=== PATIENT | female | born 1965 | race Caucasian/White ===

== ENCOUNTER 2018-03-27 19:06 | Emergency (ER) | payer OTHER ==
[~2018-03-27] VITALS: Ht 165.1 cm; Wt 78.2 kg
[2018-03-27 19:13] VITALS: TEMP 36.6; Ht 165.1 cm; Wt 78.2 kg
[2018-03-27] MEDS ORDERED: KETOROLAC TROMETHAMINE 30 MG/ML VIAL IV STA (19:22)
[2018-03-27] MEDS ORDERED: SODIUM CHLORIDE 0.9% 1000ML 1,000 ML IV STA (19:22)
[2018-03-27] MEDS ORDERED: ONDANSETRON INJ 2 MG/ML 2 ML VIAL IV STA (19:22)
[2018-03-27] MEDS ORDERED: MoRPHine SULFATE 4 MG/ML 1 ML CARP\\VIAL IV PRN (19:30)
[2018-03-27] MEDS ORDERED: OPTIRAY 320 IV PRN (19:30)
[2018-03-27 19:54] LABS: BASO % 0.2 %; BASO ABS # 0.01 K/uL (0-0.2); EOS % 1.6 %; EOS ABS # 0.09 K/uL (0-0.5); HEMATOCRIT 37.1 % (37-47); IG# 0.01 K/uL (0.00-0.02); LYMPH % 30.2 %; LYMPH ABS # 1.72 K/uL (1.2-3.4); MEAN CELL VOLUME 88.1 fL (80-100); MEAN CORPUSCULAR HEMOGLOBIN 30.9 pg (25-34); MEAN PLATELET VOLUME 8.5 fL (7.4-10.4); MONO % 6.5 %; MONO ABS # 0.37 K/uL (0.11-0.59); NEUT % 61.3 %; NEUT ABS # 3.49 K/uL (1.4-6.5); PLATELET COUNT 200 K/uL (130-400); RED CELL DISTRIBUTION WIDTH CV 12.9 % (11.5-14.5); RED CELL DISTRIBUTION WIDTH SD 41.4 fL (36.4-46.3); WHITE BLOOD COUNT 5.69 K/uL (4.8-10.8)
[2018-03-27 20:15] LABS: ALBUMIN 4.1 gm/dl (3.4-5.0); CALCIUM 9.4 mg/dl (8.5-10.1); CREATININE 0.97 mg/dl (0.60-1.20); POTASSIUM 3.5 mmol/L (3.5-5.1); TOTAL PROTEIN 8.1 gm/dl (6.4-8.2)
[2018-03-27] MEDS ORDERED: DiphenhydrAMINE HCL 50 MG/ML VIAL IV STA (20:15)
[2018-03-27] MEDS ORDERED: PROM25TA9 PO (20:43)
[2018-03-27] MEDS ORDERED: KETO10TA PO (20:43)
[2018-03-27] MEDS ORDERED: BUPR-79 PO (20:43)
[2018-03-27] MEDS ORDERED: AMB5 PO (20:43)
[2018-03-27] MEDS ORDERED: AMIT10TA6 PO (20:43)
[2018-03-27] MEDS ORDERED: RIZA10TA18 PO (20:43)
[2018-03-27] MEDS ORDERED: ESTR0.07 TD (20:43)
[2018-03-27] MEDS ORDERED: LORA-741 PO (20:43)
[2018-03-27] MEDS ORDERED: URC10 PO (20:43)
--- NOTE | 2018-03-27 22:54 | EMERGENCY ROOM VISIT NOTE ---
History Report prepared by Roxana: Neftaly Gamboa Under the Supervision of: Dr. Octavio Aaron M.D. First contact with patient: 19:16 Chief Complaint: ABDOMINAL PAIN Stated Complaint: PAIN IN LT SIDE POSS DIVERTICULITIS History of Present Illness The patient is a 53 year old female who presents to the Emergency Room with complaints of worsening left lower quadrant abdominal pain beginning two weeks ago. She currently rates her discomfort a 7/10 in severity. The patient states her symptoms have gradually increased. She reports she went to [place] ED two days ago where she had a CT scan without oral or IV contrast. The patient notes she was diagnosed with diverticulitis and given Cipro, Flagyl, and Tramadol. She states she has a history of diverticulitis and her last episode was a year ago. The patient reports he has been constipated and urinating more frequently. She notes she developed severe nausea today. The patient states she has a history of a cholecystectomy and a hysterectomy. She denies pain with urination, diarrhea, fevers, vomiting, trauma or injuries to the abdomen, and pain radiating to her back. Source of History: patient Onset: two weeks ago Position: abdomen (LLQ) Symptom Intensity: 7/10 Timing: worsening (gradually) Associated Symptoms: + nausea, No fevers, No vomiting, No diarrhea Note: Associated symptoms: constipated, urinating more frequently Denies: pain radiating to her back, pain with urination, trauma or injury to the abdomen Review of Systems See HPI for pertinent positives & negatives. A total of 10 systems reviewed and were otherwise negative. Past Medical & Surgical Medical Problems: (1) Diverticulitis Surgical Problems: (1) H/O: hysterectomy (2) History of cholecystectomy Family History Patient reports no known family medical history. Social History Smoking Status: Never Smoker Marital Status: Occupation Status: employed Current/Historical Medications Scheduled Bupropion (Wellbutrin Sr), 150 MG PO DAILY Estradiol (Vivelle-Dot), 1 PATCH TD WK Potassium Citrate (Potassium Citrate), 10 MEQ PO DAILY Sennosides-Docusate Sodium (Senokot S), 2 TAB PO BID Zolpidem Tartrate (Zolpidem Tartrate), 5 MG PO HS Scheduled PRN Amitriptyline Hcl (Elavil), 10 MG PO DIRECTED PRN for Migraine Ketorolac (Toradol), 10 MG PO DIRECTED PRN for Migraine Lorazepam (Ativan), 0.5 MG PO DIRECTED PRN for Migraine Promethazine Hcl (Phenergan), 25 MG PO DIRECTED PRN for Migraine Rizatriptan Benzoate (Maxalt), 10 MG PO DIRECTED PRN for Migraine Allergies Coded Allergies: Morphine and Related (Verified Allergy, Severe, "TIGHTING IN CHEST", SOB, 03/27/18) Physical Exam Vital Signs Date Time Temp Pulse Resp B/P (MAP) Pulse Ox O2 Delivery O2 Flow Rate FiO2 03/28/18 00:14 66 16 139/62 95 03/27/18 22:30 68 18 124/69 97 Room Air 03/27/18 20:25 69 20 141/65 99 Room Air 03/27/18 19:13 36.6 69 20 127/59 99 Room Air Physical Exam GENERAL: Patient is in no acute distress. HEENT: No acute trauma, normocephalic atraumatic, mucous membranes moist, no nasal congestion, no scleral icterus. NECK: No stridor, no adenopathy, no meningismus, trachea is midline. LUNGS: Clear to auscultation bilaterally, no wheeze, no rhonchi, breath sounds equal. HEART: Without murmurs gallops or rubs, regular rate and rhythm. ABDOMEN: Soft, moderately tender in the LLQ and mildly in the RLQ, bowel sounds positive, no hernias, no peritonitis. EXTREMITIES: No cyanosis or edema, full range of motion of all the joints without pain or difficulty, no signs for acute trauma. NEUROLOGIC: Oriented x 3, no acute motor or sensory deficits, no focal weakness. SKIN: No rash, no jaundice, no diaphoresis. Medical Decision & Procedures ER Provider Diagnostic Interpretation: CT results as stated below per my review and radiologist interpretation: CT SCAN OF THE ABDOMEN AND PELVIS WITH IV CONTRAST CLINICAL HISTORY: Left-sided abdominal pain. COMPARISON STUDY: No priors. TECHNIQUE: Following the IV administration of 93 cc of Optiray 320, CT scan of the abdomen and pelvis is performed from the lung bases to the proximal femora. Images are reviewed in the axial, sagittal, and coronal planes. IV contrast was administered without complication. A dose lowering technique was utilized adhering to the principles of ALARA. CT DOSE: 784.77 mGycm FINDINGS: Lung bases: The heart is normal in size and without pericardial effusion. The lung bases are clear noting dependent atelectasis. Liver: The contrast-enhanced liver is enlarged, measuring 19.6 cm in length. The liver is otherwise normal in contour and attenuation. There is no intrahepatic biliary ductal dilatation. Fatty infiltration is noted adjacent to the falx or ligament. Mild periportal edema is likely related to hydration status. The hepatic veins and portal veins are patent. A 1.8 cm low-attenuation lesion is seen in the inferior right lobe of the liver on image #162. This does not meet criteria for a simple cyst, and small foci of peripheral discontinuous nodular enhancement are suggested. Gallbladder: Surgically absent noting clips in the gallbladder fossa. Spleen: Normal in size and attenuation. Pancreas: Unremarkable. Adrenal glands: Unremarkable. Kidneys: The contrast enhanced kidneys demonstrate mild cortical atrophy and are without hydronephrosis. The kidneys enhance symmetrically. Abdominal vasculature: The abdominal aorta is normal in course and caliber. Bowel: There is moderate colonic diverticulosis. There is wall thickening with pericolonic inflammation and fluid seen involving the mid descending colon consistent with acute diverticulitis. No organized fluid collection is seen to suggest abscess. No bowel obstruction is identified. The appendix is well-visualized and normal. Peritoneum: There is no intraperitoneal free air or abdominal ascites. Lymphadenopathy: None. Pelvic viscera: The bladder is normal as visualized. The uterus is surgically absent. No adnexal lesion is seen. Numerous surgical clips are scattered throughout the pelvis. Skeletal structures: No lytic or blastic lesions are seen. IMPRESSION: 1. There is moderate colonic diverticulosis with evidence of acute diverticulitis involving the mid descending colon. No intraperitoneal free air is seen and there is no evidence of abscess. 2. Hepatomegaly. 3. There is a 1.8 cm low-attenuation lesion in the right lobe of the liver. Although incompletely characterized, the enhancement pattern strongly suggests that this represents a benign hemangioma. Correlation with any prior outside imaging studies will be required. If no prior studies are available and further characterization is desired an MRI of the liver would be definitive. 4. Additional findings as above. Electronically signed by: Octavio Braswell M.D. 03/27/2018 11:09 PM Dictated Date/Time: 03/27/2018 11:03 PM Laboratory Results 03/27/18 19:40 Red Blood Count 4.21, Mean Corpuscular Volume 88.1, Mean Corpuscular Hemoglobin 30.9, Mean Corpuscular Hemoglobin Concent 35.0, Mean Platelet Volume 8.5, Neutrophils (%) (Auto) 61.3, Lymphocytes (%) (Auto) 30.2, Monocytes (%) (Auto) 6.5, Eosinophils (%) (Auto) 1.6, Basophils (%) (Auto) 0.2, Neutrophils # (Auto) 3.49, Lymphocytes # (Auto) 1.72, Monocytes # (Auto) 0.37, Eosinophils # (Auto) 0.09, Basophils # (Auto) 0.01 03/27/18 19:40 Test 03/27/18 19:40 White Blood Count 5.69 K/uL (4.8-10.8) Red Blood Count 4.21 M/uL (4.2-5.4) Hemoglobin 13.0 g/dL (12.0-16.0) Hematocrit 37.1 % (37-47) Mean Corpuscular Volume 88.1 fL (80-100) Mean Corpuscular Hemoglobin 30.9 pg (25-34) Mean Corpuscular Hemoglobin Concent 35.0 g/dl (32-36) Platelet Count 200 K/uL (130-400) Mean Platelet Volume 8.5 fL (7.4-10.4) Neutrophils (%) (Auto) 61.3 % Lymphocytes (%) (Auto) 30.2 % Monocytes (%) (Auto) 6.5 % Eosinophils (%) (Auto) 1.6 % Basophils (%) (Auto) 0.2 % Neutrophils # (Auto) 3.49 K/uL (1.4-6.5) Lymphocytes # (Auto) 1.72 K/uL (1.2-3.4) Monocytes # (Auto) 0.37 K/uL (0.11-0.59) Eosinophils # (Auto) 0.09 K/uL (0-0.5) Basophils # (Auto) 0.01 K/uL (0-0.2) RDW Standard Deviation 41.4 fL (36.4-46.3) RDW Coefficient of Variation 12.9 % (11.5-14.5) Immature Granulocyte % (Auto) 0.2 % Immature Granulocyte # (Auto) 0.01 K/uL (0.00-0.02) Urine Color YELLOW Urine Appearance CLEAR (CLEAR) Urine pH 5.0 (4.5-7.5) Urine Specific [place] 1.016 (1.000-1.030) Urine Protein NEG (NEG) Urine Glucose (UA) NEG (NEG) Urine Ketones TRACE (NEG) Urine Occult Blood TRACE (NEG) Urine Nitrite NEG (NEG) Urine Bilirubin NEG (NEG) Urine Urobilinogen NEG (NEG) Urine Leukocyte Esterase SMALL (NEG) Urine WBC (Auto) 1-5 /hpf (0-5) Urine RBC (Auto) 0-4 /hpf (0-4) Urine Hyaline Casts (Auto) 0 /lpf (0-5) Urine Epithelial Cells (Auto) 10-20 /lpf (0-5) Urine Bacteria (Auto) NEG (NEG) Anion Gap 6.0 mmol/L (3-11) Est Creatinine Clear Calc Drug Dose 70.9 ml/min Estimated GFR () 78.4 Estimated GFR (Non- 67.6 BUN/Creatinine Ratio 12.5 (10-20) Calcium Level 9.4 mg/dl (8.5-10.1) Total Bilirubin 0.8 mg/dl (0.2-1) Aspartate Amino Transf (AST/SGOT) 14 U/L (15-37) Alanine Aminotransferase (ALT/SGPT) 14 U/L (12-78) Alkaline Phosphatase 69 U/L (45-117) Total Protein 8.1 gm/dl (6.4-8.2) Albumin 4.1 gm/dl (3.4-5.0) Globulin 4.0 gm/dl (2.5-4.0) Albumin/Globulin Ratio 1.0 (0.9-2) Lipase 107 U/L (73-393) Laboratory results reviewed by me. Medications Administered Medications (Trade) Dose Ordered Sig/Caleb Route Start Time Stop Time Status Last Admin Dose Admin Ondansetron HCl (Zofran Inj) 4 mg NOW STAT IV 18 19:22 18 19:25 DC 18 19:43 4 MG Sodium Chloride 1,000 ml @ 999 mls/hr Q1H1M STAT IV 18 19:22 18 20:22 DC 03/27/18 19:43 999 MLS/HR Morphine Sulfate (MoRPHine SULFATE INJ) 4 mg Q30M PRN IV 03/27/18 19:30 03/28/18 00:36 DC 03/27/18 19:44 4 MG Ketorolac Tromethamine (Toradol Inj) 30 mg NOW STAT IV 03/27/18 19:22 03/27/18 19:25 DC 03/27/18 19:44 30 MG Diphenhydramine HCl (Benadryl Inj) 25 mg NOW STAT IV 03/27/18 20:15 03/27/18 20:16 DC 03/27/18 20:24 25 MG Piperacillin Sod/ Tazobactam Sod (Zosyn Iv) 4.5 gm NOW STAT IV 03/27/18 23:17 03/27/18 23:18 DC 03/27/18 23:25 4.5 GM Senna/Docusate Sodium (Senokot S Tab) 2 tab NOW ONCE PO 03/28/18 00:00 03/28/18 00:01 DC 03/28/18 00:10 2 TAB Oxycodone HCl (Roxicodone Immediate Rel 5MG Home Pack) 1 homepack UD ONCE PO 03/28/18 00:15 03/28/18 00:16 DC 03/28/18 00:12 1 HOMEPACK ECG Per My Interpretation Indication: chest pain Rate (beats per minute): 64 Rhythm: normal sinus Findings: no ectopy, other (No PVCs. No ST elevation.) ED Course 1917: The patient was evaluated in room A03. A complete history and physical exam was performed. 1921: Ordered Toradol 30mg IV, Sodium Chloride 1000 ml @ 999 mls/hr IV, Zofran 4mg IV 1929: Ordered Morphine Sulfate 4mg IV 2015: Ordered Benadryl 25mg IV 2020: The patient developed chest pain after she was given Morphine. I ordered an EKG to be performed. 2222: I reevaluated the patient and discussed her current exam findings. She is feeling better. 7: Ordered Piperacillin Sod/Tazobactam Sod 4.5gm IV 4: Reevaluated the patient. Discussed results and discharge instructions: she verbalized understanding and agreement. The patient is ready for discharge when she receives her medication. 0000: Senokot S 2 tab PO Medical Decision The patient is a 53 year old female who presents to the ED with complaints of worsening left lower quadrant abdominal pain. Differential diagnoses considered include diverticulitis, bowel rupture, abscess, UTI, pancreatitis, musculoskeletal pain, constipation, failed outpatient treatment, hernia. There is no leukocytosis or concerning anemia. No significant electrolyte abnormality, kidney failure or hepatitis. No evidence for pancreatitis. Urinalysis does not show infection. Abdominal and pelvis CT shows diverticulitis, no bowel obstruction or abscess. No free air. On exam, there was no peritonitis. The patient was not febrile or toxic. The patient received IV Toradol, IV morphine and IV saline. She was given IV Zofran. She had a funny reaction to the morphine, she developed some discomfort across her chest. She was given IV Benadryl. An EKG was done, there was a sinus rhythm, no acute ischemia. The patient appears to have diverticulitis. She was given a dose of IV Zosyn for some additional pain control. As she is having difficulty moving her bowels , I will start her on some Senokot and MiraLAX. This may help some of the discomfort. Patient was encouraged to continue the Cipro and Flagyl. She can return here for any worsening symptoms, she can follow with her doctor as an outpatient. Medication Reconcilliation Current Medication List: was personally reviewed by me Blood Pressure Screening Patient's blood pressure: Normal blood pressure Blood pressure disposition: Did not require urgent referral Impression Primary Impression: Diverticulitis Scribe Attestation The scribe's documentation has been prepared under my direction and personally reviewed by me in its entirety. I confirm that the note above accurately reflects all work, treatment, procedures, and medical decision making performed by me. Departure Information Dispostion Home / Self-Care Prescriptions Sennosides-Docusate Sodium (SENOKOT S) 1 Tab Tab 2 TAB PO BID, #30 TAB 4 Refills Prov: Octavio Aaron M.D. 03/27/18 Referrals Tri Priest M.D. Forms Call Back Authorization, HOME CARE DOCUMENTATION FORM, IMPORTANT VISIT INFORMATION Patient Instructions My [facility] Additional Instructions continue the meds as before start senokot 2 tab 2x per day to help bowel movements may use oxy ir 1 tab as needed for severe pain--use sparingly use miralax 1 heaping capfull in 8 oz of liquid 2x per day--back off to 1x per day for loose stools return for fever or worsening symptoms follow with your [facility] md for a recheck in a few days
--- NOTE | 2018-03-27 23:10 | DIAGNOSTIC IMAGING REPORT ---
CT SCAN OF THE ABDOMEN AND PELVIS WITH IV CONTRAST CLINICAL HISTORY: Left-sided abdominal pain. COMPARISON STUDY: No priors. TECHNIQUE: Following the IV administration of 93 cc of Optiray 320, CT scan of the abdomen and pelvis is performed from the lung bases to the proximal femora. Images are reviewed in the axial, sagittal, and coronal planes. IV contrast was administered without complication. A dose lowering technique was utilized adhering to the principles of ALARA. CT DOSE: 784.77 mGycm FINDINGS: Lung bases: The heart is normal in size and without pericardial effusion. The lung bases are clear noting dependent atelectasis. Liver: The contrast-enhanced liver is enlarged, measuring 19.6 cm in length. The liver is otherwise normal in contour and attenuation. There is no intrahepatic biliary ductal dilatation. Fatty infiltration is noted adjacent to the falx or ligament. Mild periportal edema is likely related to hydration status. The hepatic veins and portal veins are patent. A 1.8 cm low-attenuation lesion is seen in the inferior right lobe of the liver on image #162. This does not meet criteria for a simple cyst, and small foci of peripheral discontinuous nodular enhancement are suggested. Gallbladder: Surgically absent noting clips in the gallbladder fossa. Spleen: Normal in size and attenuation. Pancreas: Unremarkable. Adrenal glands: Unremarkable. Kidneys: The contrast enhanced kidneys demonstrate mild cortical atrophy and are without hydronephrosis. The kidneys enhance symmetrically. Abdominal vasculature: The abdominal aorta is normal in course and caliber. Bowel: There is moderate colonic diverticulosis. There is wall thickening with pericolonic inflammation and fluid seen involving the mid descending colon consistent with acute diverticulitis. No organized fluid collection is seen to suggest abscess. No bowel obstruction is identified. The appendix is well-visualized and normal. Peritoneum: There is no intraperitoneal free air or abdominal ascites. Lymphadenopathy: None. Pelvic viscera: The bladder is normal as visualized. The uterus is surgically absent. No adnexal lesion is seen. Numerous surgical clips are scattered throughout the pelvis. Skeletal structures: No lytic or blastic lesions are seen. IMPRESSION: 1. There is moderate colonic diverticulosis with evidence of acute diverticulitis involving the mid descending colon. No intraperitoneal free air is seen and there is no evidence of abscess. 2. Hepatomegaly. 3. There is a 1.8 cm low-attenuation lesion in the right lobe of the liver. Although incompletely characterized, the enhancement pattern strongly suggests that this represents a benign hemangioma. Correlation with any prior outside imaging studies will be required. If no prior studies are available and further characterization is desired an MRI of the liver would be definitive. 4. Additional findings as above. Electronically signed by: Octavio Braswell M.D. 03/27/2018 11:09 PM Dictated Date/Time: 03/27/2018 11:03 PM
[2018-03-27] MEDS ORDERED: PIPERACILLIN/TAZOBACTAM 4.5 GM/100ML D5W IV STA (23:17)
[2018-03-27] MEDS ORDERED: SENN-65 PO (23:52)
[2018-03-28] MEDS ORDERED: DOCUSATE SODIUM/SENNA 50/8.6MG TAB PO ONE
[2018-03-28 00:14] VITALS: BP 139/62; PULSE 66; O2SAT 95
[2018-03-28] MEDS ORDERED: OXYCODONE IR HOME PACK PO ONE (00:15)
== END 2018-03-28 00:14 | disposition home or self-care (01) ==
LOC: C.EDB 19:09 → C.EDA 03-28 00:14
DX: K57.92 Diverticulitis of intestine, part unspecified, without perforation or abscess without bleeding (principal); Z90.49 Acquired absence of other specified parts of digestive tract; Z90.710 Acquired absence of both cervix and uterus; Z88.5 Allergy status to narcotic agent

== ENCOUNTER 2018-12-29 07:59 | Inpatient (IN) ==
--- NOTE | 2018-12-19 13:41 | Anesthesiology Consultation ---
Date of Service December 19, 2018 Assessment & Plan (1) Encounter for pre-operative examination: Chart Review Chart Review: Acceptable Risk for Surgery and Patient NOT seen in Pre Admission Testing History Surgery Operation Date: 12/29/18 08:20 Proposed Procedures p Laparoscopic Sigmoid Colon Resection - Santy Carreno, Height/Weight Height: 5 ft 5 in Weight: 77.111 kg Allergies Allergy/AdvReac Type Severity Reaction Status Date / Time morphine Allergy Severe "TIGHTING Verified 12/18/18 10:43 IN CHEST", SOB Medications Home Medications Medication Instructions Recorded Confirmed Last Taken bupropion HCl 150 mg PO QAM 11/25/18 12/18/18 12/17/18 cholecalciferol (vitamin D3) 2,000 units PO QAM 11/25/18 12/18/18 12/17/18 [Vitamin D3] dicyclomine 10 mg PO TID PRN 11/25/18 12/18/18 Unknown estradiol 0.075 mg TOPICAL 2XWK 11/25/18 12/18/18 12/14/18 ketorolac 10 mg PO DIRECTED PRN 11/25/18 12/18/18 Unknown magnesium 200 mg PO QAM 11/25/18 12/18/18 12/17/18 potassium citrate 10 meq PO QAM 11/25/18 12/18/18 12/17/18 rizatriptan 10 mg PO DIRECTED PRN 11/25/18 12/18/18 Unknown valacyclovir 1,000 mg PO Q12H PRN 11/25/18 12/18/18 Unknown zolpidem 5 mg PO HS PRN 11/25/18 12/18/18 Unknown Past Medical History Medical History Diverticulitis RECURRENT (REASON FOR PROCEDURE) Cancer CERVICAL CANCER (2001) Kidney stones Migraine Past Family History Family History Father Family history of diabetes mellitus Mother Family history of diabetes mellitus Past Surgical History Surgical History H/O: hysterectomy CARLYLE WITH LSO History of adenoidectomy History of cholecystectomy LAP History of colonoscopy History of cystoscopy WITH STONE EXTRACTION History of esophagogastroduodenoscopy (EGD) History of lithotripsy History of nasal septoplasty History of tonsillectomy Social History Smoking Status: Never smoker Do You Dip or Chew Tobacco: No Hx Alcohol Use: Yes Alcohol type: beer and wine alcohol intake frequency: a few times a month Hx Substance Use: No substance use type: does not use Testing Electrocardiogram Date: 03/27/18 Findings: + NSR @ (64) Chest X-Ray Date: 05/05/18 Findings: + NAD Laboratory Results 12/17/18 WBC 6.28 H/H 12.4/36.6 PLATELETS 224 SODIUM 139 POTASSIUM 3.3 CHLORIDE 107 CO2 29 BUN 11 CREATININE 0.79 GLUCOSE 101 UA negative
[~2018-12-29 07:59] MED LIST: CEFAZOLIN 2000MG 2,000 MG/15 ML SYR IV SCH; HEPARIN SOD 5,000 UNIT/0.5 ML VIAL SQ SCH; LR 15ML/HR IV SCH
[2018-12-29] MEDS ORDERED: ONDANSETRON INJ 2 MG/ML 2 ML VIAL IV PRN (08:38)
[2018-12-29] MEDS ORDERED: ePHEDrine sulfate 50 MG/ML AMP IV PRN (08:38)
[2018-12-29] MEDS ORDERED: ATROPINE SULFATE 0.1 MG/ML 10ML SYR IV PRN (08:38)
[2018-12-29] MEDS ORDERED: MEPERIDINE HCL 25 MG/ML CARP IV PRN (08:38)
[2018-12-29] MEDS ORDERED: LABETALOL HCL IV 5 MG/ML 20ML IV PRN (08:38)
[2018-12-29] MEDS ORDERED: PHENYLEPHRINE 100MCG/ML 5ML SYR IV PRN (08:38)
[2018-12-29] MEDS ORDERED: ONDANSETRON INJ 2 MG/ML 2 ML VIAL ONE ×2 (08:43→12:20)
[2018-12-29] MEDS ORDERED: LIDOCAINE HCL 2% 2 ML VIAL/AMP(20MG/ML) INFIL ONE (08:43)
[2018-12-29] MEDS ORDERED: GLYCOPYRROLATE 0.2 MG/ML VIAL ONE ×2 (08:43→12:20)
[2018-12-29] MEDS ORDERED: MIDAZOLAM HCL 1 MG/ML 2ML VIAL ONE (08:43)
[2018-12-29] MEDS ORDERED: DEXAMETHASONE SOD INJ 4 MG/ML VIAL ONE (08:43)
[2018-12-29] MEDS ORDERED: NEOSTIGMINE METHYLSULFATE 5 MG/5 ML SYR ONE (08:43)
[2018-12-29] MEDS ORDERED: PROPOFOL IV EMULSION 10 MG/ML 20 ML VIAL IV ONE (08:43)
[2018-12-29] MEDS ORDERED: fentaNYL citrate 100 MCG/2 ML VIAL ONE (08:43)
[2018-12-29] MEDS ORDERED: SCOPOLAMINE 1.5 MG TDSY ONE (09:05)
--- NOTE | 2018-12-29 09:11 | History & Physical Bridge Note ---
Date of Service December 29, 2018 History & Physical Bridge Note I have examined the patient, reviewed the History & Physical and in the interval since the performance of the History & Physical I have noted the following changes of clinical significance: no changes noted
[2018-12-29] MEDS ORDERED: BUPIVACAINE/EPINEPHRINE 0.5% MPF 1:200,000 30 ML VIAL ONE (09:35)
[2018-12-29] MEDS ORDERED: HYDROmorphone INJ 2 MG/ML SYR/VIAL ONE (09:58)
[2018-12-29] MEDS ORDERED: ROCURONIUM BROMIDE 10 MG/ML 5 ML VIAL ONE (10:30)
[2018-12-29] MEDS ORDERED: ePHEDrine sulfate 50 MG/ML SYR ONE (12:25)
--- NOTE | 2018-12-29 12:52 | Post Operative Brief Note ---
Immediate Post Op Note v1 Date of Surgery December 29, 2018 Pre & Post Diagnosis Operation Date: 12/29/18 09:30 Pre-Op Diagnosis: Recurrent Diveritculitis Post-Op Diagnosis: Recurrent Diveritculitis; extensive adhesions. Procedure Operation Date: 12/29/18 09:30 Actual Procedures p Laparoscopic Sigmoid Colon Resection, Extensive Enterolysis(Not Applicable) - Santy Carreno DO Surgeon Santy Carreno DO P[employer] Developer constanza gomez Estimated Blood Loss 20 Findings Consistent with Post-Op Diagnosis Drains Worrell Catheter and Gerard-Jenkins Drain (10 flat)
[2018-12-29] MEDS: fentaNYL citrate 100 MCG/2 ML VIAL IV PRN ×4 (12:54→13:20)
--- NOTE | 2018-12-29 13:24 | Operative Report ---
Post Operative Report Pre & Post Diagnosis Operation Date: 12/29/18 09:30 Pre-Op Diagnosis: Recurrent Diveritculitis Post-Op Diagnosis: Recurrent Diveritculitis; extensive adhesions Procedure Operation Date: 12/29/18 09:30 Actual Procedures p Laparoscopic Sigmoid Colon Resection, Extensive Enterolysis(Not Applicable) - Santy Carreno DO Surgeon Santy Carreno DO Agate Setter constanza gomez Estimated Blood Loss 20 Findings Consistent with Post-Op Diagnosis Specimens sigmoid colon Description of Procedure After informed consent was obtained the patient was taken to the operating room and placed in supine position. After successful intubation a Worrell catheter was placed and the patient was placed in the low lithotomy position. The abdomen and perineum were sterilely prepped and draped in usual fashion. I began with a supraumbilical incision with an 11 blade scalpel and carried this down through the soft tissue using cautery. The anterior fascia was opened using cautery and 2 #0 Vicryl stay sutures were placed. Peritoneum was entered using blunt finger penetration and a finger sweep performed. A 12 mm Hernandez trocar was placed and the abdomen was insufflated to 18 mmHg. The laparoscope was inserted and the abdomen was examined 360 degrees. There were extensive adhesions in the lower abdomen involving small bowel and her sigmoid colon to the anterior abdominal wall as well as the lateral sidewalls. The were extensive and tedious to take down. I was able to place a right mid abdominal 5 mm trocar in the left mid abdominal 5 mm trocar and began taking down the adhesions. I had to place an additional right upper quadrant 5 mm trocar and eventually I would place a 12 mm trocar in the right lower quadrant. The first 45 minutes to 1 hour of the procedure were used to take down these adhesions using blunt dissection, sharp scissor lysis and small amounts of the harmonic scalpel. Eventually I was able to get the small bowel and colon detached from the abdominal wall. The sigmoid colon itself was thickened and stuck to the pelvic sidewall extensively. I was able to mobilize it using blunt dissection and harmonic scalpel by taking down the white line of Toldt down past the peritoneal reflection distally and up to the splenic flexure proximally. I was then able to identify healthy appearing area of large bowel proximal to the area of previous inflammation. I marked this with 3-0 Polysorb stitch. I then made a window in the mesentery at the pelvic brim. I was able to use a GHULAM purple cartridge stapler to transect the bowel distal to the area of inflammation on top of healthy appearing rectosigmoid colon. I then used the harmonic scalpel to take down the mesentery from the staple line proximal to the previously placed suture. Next we extended the left port site incision medially and laterally and carried this down soft tissue using cautery. I opened the fascia until we were able to deliver the colon and exteriorize it. Once it was exteriorized we then used Lary clamps to clamp it off and divided it at the previously placed suture line. It was passed off to be sent to pathology. We then estimated the size of the lumen to be a #28. The anvil of a 28 circular stapler was placed into the end of the colon and the pursestring device used to secure it in place. This was then placed back into the abdominal cavity. The fascia was then closed using 0 PDS in a running fashion. Next we changed our gloves. We reinsufflated the abdomen. We used a sizer to come into the rectal stump followed by the handle of the circular stapler. I was able to deployed the spike anterior to the staple line. The anvil laid easily over the pelvic brim to create a tension-free anastomosis. The handle was connected to the anvil and they were secured together and fired creating a circular functional end to end anastomosis. Both donut rings were intact. I insufflated the staple line under water and it was in fact airtight with no evidence of leaks. We thoroughly irrigated the lower abdomen and pelvis. There was adequate hemostasis. A 10 flat Gerard-Jenkins drain was placed in the pelvis and brought out through 1 of the trocar sites and secured to the skin using 0 Vicryl. We did run the small bowel that was previously lysed just to ensure we did not identify any enterotomies and we did not identify any injury to the bowel. We then removed all the trochars and desufflated the abdomen. The fascia the camera port was closed using 0 Vicryl in a [id number] fashion. All wounds were irrigated. The larger wound was closed with 3-0 Vicryl and 4-0 Monocryl for skin and the small trocar sites were closed using 4- 0 Monocryl. Terellaine was injected around them for postoperative analgesia and skin glue used as a dressing. The patient was awakened, extubated and transferred to recovery in stable condition. My physician post production assistant was present for the entire case. He helped prep the patient. He helped run the camera, helped with the anastomosis, helped with wound closure and dressing placement. I attest to the content of the Intraoperative Record and any orders documented therein. Any exceptions are noted below.
[2018-12-29] MEDS: HYDROmorphone INJ 1 MG/ML SYRINGE IV PRN ×5 (13:28→13:59)
[2018-12-29] MEDS ORDERED: KETOROLAC (**for OR use only**) 30 MG/ML VIAL IV ONE (13:45)
--- NOTE | 2018-12-29 13:46 | Anesthesiology Progress Note ---
Date of Service December 29, 2018 Anesthesia Post Procedure Vital Signs Vital Signs: Temp Pulse Pulse Resp BP Pulse Ox 12/29/18 13:40 77 12 102/49 L 99 12/29/18 13:30 73 14 104/55 L 100 12/29/18 13:20 76 16 101/54 L 99 12/29/18 13:10 77 12 107/57 L 100 12/29/18 13:00 88 12 108/69 100 12/29/18 12:50 83 12 105/61 100 12/29/18 12:44 36.2 C L 92 H 12 110/58 L 100 12/29/18 08:37 36.5 C 70 18 125/73 97 Pain Intensity Abdomen: Pain Intensity: 4 Notes Mental Status: alert / awake / arousable and participated in evaluation Patient Amnestic to Procedure: Yes Nausea / Vomiting: adequately controlled Pain: adequately controlled Airway Patency, RR, SpO2: stable & adequate BP & HR: stable & adequate Hydration State: stable & adequate Anesthetic Complications: no major complications apparent and Pt Satisfied with anesthetic care
[2018-12-29] MEDS ORDERED: KETOROLAC 30 MG/ML VIAL ONE (13:47)
[2018-12-29] MEDS ORDERED: HYDROmorphone INJ 1 MG/ML SYRINGE ONE (13:50)
[2018-12-29 15:53] LABS: Creatinine Clr Calc Pharmacy 66.6 ml/min; Est GFR (African American) 72.9; Est GFR (Non-African American) 62.9
[2018-12-29 15:56] LABS: INR 1.1 (0.9-1.1); Prothrombin Time 10.7 Seconds (9.0-12.0)
[2018-12-29] MEDS: KETOROLAC TROMETHAMINE 10 MG TABLET PO PRN (16:23)
[2018-12-29] MEDS: LACTATED RINGER'S 1,000 ML IV SCH ×2 (16:23→23:34)
[2018-12-29] MEDS: HYDROmorphone INJ 0.5 MG/0.5 ML SYR IV PRN ×3 (17:16→23:27)
[2018-12-29] MEDS: CEFAZOLIN 2000MG 2,000 MG/15 ML SYR IV SCH (17:16)
[2018-12-29] MEDS: ACETAMINOPHEN 1,000 MG/100 ML VIAL IV SCH (17:17)
[2018-12-30] MEDS: ACETAMINOPHEN 1,000 MG/100 ML VIAL IV SCH ×3 (01:33→17:44)
[2018-12-30] MEDS: CEFAZOLIN 2000MG 2,000 MG/15 ML SYR IV SCH ×2 (01:34→10:41)
[2018-12-30] MEDS: HYDROmorphone INJ 0.5 MG/0.5 ML SYR IV PRN ×6 (06:11→23:51)
[2018-12-30 07:10] LABS: Basophils # (auto) 0.01 K/uL (0-0.2); Basophils % (auto) 0.1 %; Eosinophils # (auto) 0.01 K/uL (0-0.5); Eosinophils % (auto) 0.1 %; Hematocrit (blood only) 34.8 % (37-47); Hemoglobin 11.5 g/dL (12.0-16.0); Immature Granulocytes # (auto) 0.01 K/uL (0.00-0.02); Immature Granulocytes % (auto) 0.1 %; Lymphocytes # (auto) 1.87 K/uL (1.2-3.4); Lymphocytes % (auto) 18.2 %; Mean Corpuscular Volume 90.4 fL (80-100); Mean Platelet Volume 8.7 fL (7.4-10.4); Monocytes # (auto) 0.67 K/uL (0.11-0.59); Monocytes % (auto) 6.5 %; Neutrophils # (auto) 7.71 K/uL (1.4-6.5); Platelet Count 192 K/uL (130-400); RDW Coefficient of Variation 12.4 % (11.5-14.5); RDW Standard Deviation 40.7 fL (36.4-46.3); Red Blood Count 3.85 M/uL (4.2-5.4); White Blood Count 10.28 K/uL (4.8-10.8)
[2018-12-30] MEDS: LACTATED RINGER'S 1,000 ML IV SCH ×3 (07:33→21:04)
[2018-12-30 07:39] LABS: BUN Creatinine Ratio 13.3 (10-20); Calcium 7.7 mg/dl (8.5-10.1); Creatinine Clr Calc Pharmacy 83.6 ml/min; Est GFR (Non-African American) 82.9; Potassium 3.6 mmol/L (3.5-5.1)
--- NOTE | 2018-12-30 07:55 | Surgery Progress Note ---
Date of Service December 30, 2018 Assessment & Plan (1) Diverticulitis: doing as expected pod 1 increase activity/oob today keep galdamez for another 24 hours Subjective pt seen. expected tenderness... Physical Exam 2 Vital Signs (Past 24 Hours): Last Vital Signs Temp 36.4 C L 12/30/18 07:26 Pulse 78 12/30/18 07:26 Resp 16 12/30/18 07:26 BP 103/44 L 12/30/18 07:26 Pulse Ox 100 12/30/18 07:26 Physical Exam: nad. abd: expected tenderness. KATHLEEN serous.
[2018-12-30] MEDS: ENOXAPARIN INJ 40 MG/0.4 ML SYR SQ SCH (09:48)
[2018-12-30] MEDS: BuPROPion SR 150 MG TABCR PO SCH (09:48)
[2018-12-30] MEDS: ZOLPIDEM TARTRATE 5 MG TAB PO PRN (21:56)
[2018-12-30] MEDS: ONDANSETRON INJ 2 MG/ML 2 ML VIAL IV PRN (23:55)
[2018-12-31] MEDS: ACETAMINOPHEN 1,000 MG/100 ML VIAL IV SCH ×3 (01:47→19:47)
[2018-12-31] MEDS: HYDROmorphone INJ 0.5 MG/0.5 ML SYR IV PRN ×2 (01:50→07:30)
[2018-12-31] MEDS: LACTATED RINGER'S 1,000 ML IV SCH ×3 (04:06→19:25)
[2018-12-31 06:36] LABS: Basophils # (auto) 0.02 K/uL (0-0.2); Basophils % (auto) 0.2 %; Eosinophils # (auto) 0.09 K/uL (0-0.5); Eosinophils % (auto) 1.1 %; Hematocrit (blood only) 34.7 % (37-47); Hemoglobin 11.7 g/dL (12.0-16.0); Immature Granulocytes # (auto) 0.01 K/uL (0.00-0.02); Immature Granulocytes % (auto) 0.1 %; Lymphocytes # (auto) 1.45 K/uL (1.2-3.4); Lymphocytes % (auto) 16.9 %; Mean Corpuscular Hgb Conc 33.7 g/dL (32-36); Mean Corpuscular Volume 90.6 fL (80-100); Mean Platelet Volume 8.7 fL (7.4-10.4); Monocytes # (auto) 0.52 K/uL (0.11-0.59); Monocytes % (auto) 6.1 %; Neutrophils # (auto) 6.48 K/uL (1.4-6.5); Neutrophils % (auto) 75.6 %; Platelet Count 176 K/uL (130-400); RDW Coefficient of Variation 12.6 % (11.5-14.5); RDW Standard Deviation 41.8 fL (36.4-46.3); Red Blood Count 3.83 M/uL (4.2-5.4); White Blood Count 8.57 K/uL (4.8-10.8)
[2018-12-31 07:03] LABS: BUN Creatinine Ratio 11.5 (10-20); Calcium 7.7 mg/dl (8.5-10.1); Creatinine Clr Calc Pharmacy 97.9 ml/min; Est GFR (African American) 116.3; Est GFR (Non-African American) 100.3; Potassium 3.5 mmol/L (3.5-5.1)
[2018-12-31] MEDS: ONDANSETRON INJ 2 MG/ML 2 ML VIAL IV PRN (07:34)
--- NOTE | 2018-12-31 08:22 | Surgery Progress Note ---
Date of Service December 31, 2018 Assessment & Plan (1) Diverticulitis: POD 2 doing as expected start clears change to oral pain meds d/c galdamez oob/increase activity Subjective doing ok. incisional pain and mild nausea after dilaudid. +flatus. no bm Physical Exam 2 Vital Signs (Past 24 Hours): Last Vital Signs Temp 37.5 C 12/31/18 07:18 Pulse 84 12/31/18 07:18 Resp 18 12/31/18 07:18 BP 123/69 12/31/18 07:18 Pulse Ox 91 12/31/18 07:18 Physical Exam: alert. nad. expected ttp on abdomen. incisions look good KATHLEEN serous
[2018-12-31] MEDS: ENOXAPARIN INJ 40 MG/0.4 ML SYR SQ SCH (09:01)
[2018-12-31] MEDS: BuPROPion SR 150 MG TABCR PO SCH (09:01)
[2018-12-31] MEDS: KETOROLAC TROMETHAMINE 10 MG TABLET PO PRN (10:35)
--- NOTE | 2018-12-31 11:42 | Anesthesiology Progress Note ---
Date of Service December 30, 2018 Anesthesia Post Procedure Vital Signs Vital Signs: Temp Pulse Resp BP Pulse Ox 12/31/18 07:18 37.5 C 84 18 123/69 91 12/30/18 23:05 37.6 C H 80 16 110/59 L 92 12/30/18 15:06 37.2 C 75 16 102/64 100 Pain Intensity Abdomen: Pain Intensity: 5 Notes Mental Status: alert / awake / arousable and participated in evaluation Patient Amnestic to Procedure: Yes Nausea / Vomiting: adequately controlled Pain: adequately controlled Airway Patency, RR, SpO2: stable & adequate BP & HR: stable & adequate Hydration State: stable & adequate Anesthetic Complications: no major complications apparent and Pt Satisfied with anesthetic care
[2018-12-31] MEDS: HYDROCODONE/ACETAMOPHEN 5/325MG TAB PO PRN ×3 (11:44→21:58)
[2019-01-01] MEDS ORDERED: HYDROmorphone INJ 0.5 MG/0.5 ML SYR IV STA ×2 (00:04→07:51)
[2019-01-01] MEDS ORDERED: DiphenhydrAMINE HCL 50 MG/ML VIAL IV STA (00:04)
[2019-01-01] MEDS: ACETAMINOPHEN 1,000 MG/100 ML VIAL IV SCH ×3 (01:36→17:10)
[2019-01-01] MEDS: LACTATED RINGER'S 1,000 ML IV SCH ×3 (01:53→18:04)
[2019-01-01 07:52] LABS: Basophils # (auto) 0.01 K/uL (0-0.2); Basophils % (auto) 0.2 %; Eosinophils # (auto) 0.22 K/uL (0-0.5); Eosinophils % (auto) 3.4 %; Hematocrit (blood only) 31.8 % (37-47); Hemoglobin 10.7 g/dL (12.0-16.0); Immature Granulocytes # (auto) 0.01 K/uL (0.00-0.02); Immature Granulocytes % (auto) 0.2 %; Lymphocytes # (auto) 1.59 K/uL (1.2-3.4); Lymphocytes % (auto) 24.5 %; Mean Corpuscular Hgb Conc 33.6 g/dL (32-36); Mean Corpuscular Volume 91.1 fL (80-100); Mean Platelet Volume 8.5 fL (7.4-10.4); Monocytes # (auto) 0.55 K/uL (0.11-0.59); Monocytes % (auto) 8.5 %; Neutrophils # (auto) 4.11 K/uL (1.4-6.5); Neutrophils % (auto) 63.2 %; Platelet Count 178 K/uL (130-400); RDW Coefficient of Variation 12.6 % (11.5-14.5); RDW Standard Deviation 41.6 fL (36.4-46.3); Red Blood Count 3.49 M/uL (4.2-5.4); White Blood Count 6.49 K/uL (4.8-10.8)
[2019-01-01] MEDS ORDERED: HYDROmorphone INJ 0.5 MG/0.5 ML SYR ONE (08:01)
[2019-01-01 08:23] LABS: BUN Creatinine Ratio 9.7 (10-20); Calcium 7.7 mg/dl (8.5-10.1); Creatinine Clr Calc Pharmacy 103.9 ml/min; Est GFR (African American) 118.5; Est GFR (Non-African American) 102.3; Potassium 3.5 mmol/L (3.5-5.1)
[2019-01-01] MEDS: ENOXAPARIN INJ 40 MG/0.4 ML SYR SQ SCH (09:24)
[2019-01-01] MEDS: BuPROPion SR 150 MG TABCR PO SCH (09:24)
[2019-01-01] MEDS: HYDROCODONE/ACETAMOPHEN 5/325MG TAB PO PRN (09:26)
--- NOTE | 2019-01-01 10:00 | Surgery Progress Note ---
Date of Service January 01, 2019 Assessment & Plan (1) Diverticulitis: POD 3 from lap sigmoid awaiting full return of bowel fx stay on clears for now ambulate Subjective doing ok. had "bad night" last night with incisional pain/cramping. aimee liquids. +flatus. no bm yet Physical Exam 2 Vital Signs (Past 24 Hours): Last Vital Signs Temp 36.8 C 01/01/19 08:00 Pulse 63 01/01/19 08:00 Resp 17 01/01/19 08:00 BP 130/55 L 01/01/19 08:00 Pulse Ox 95 01/01/19 08:00 Physical Exam: alert. mild discomfort. abd: mild distenstion. expected incsional discomfort. KATHLEEN serous/pink
[2019-01-01] MEDS: HYDROmorphone INJ 0.5 MG/0.5 ML SYR IV PRN ×3 (13:27→21:39)
[2019-01-01] MEDS: ONDANSETRON INJ 2 MG/ML 2 ML VIAL IV PRN (21:39)
[2019-01-01] MEDS: ZOLPIDEM TARTRATE 5 MG TAB PO PRN (23:33)
[2019-01-02] MEDS: LACTATED RINGER'S 1,000 ML IV SCH ×2 (01:31→09:26)
[2019-01-02] MEDS: ACETAMINOPHEN 1,000 MG/100 ML VIAL IV SCH ×3 (01:31→18:49)
[2019-01-02 06:33] LABS: Basophils # (auto) 0.02 K/uL (0-0.2); Basophils % (auto) 0.3 %; Eosinophils # (auto) 0.21 K/uL (0-0.5); Eosinophils % (auto) 3.6 %; Hematocrit (blood only) 31.6 % (37-47); Hemoglobin 10.9 g/dL (12.0-16.0); Immature Granulocytes # (auto) 0.01 K/uL (0.00-0.02); Immature Granulocytes % (auto) 0.2 %; Lymphocytes # (auto) 1.53 K/uL (1.2-3.4); Lymphocytes % (auto) 26.1 %; Mean Corpuscular Hgb Conc 34.5 g/dL (32-36); Mean Corpuscular Volume 89.5 fL (80-100); Mean Platelet Volume 8.5 fL (7.4-10.4); Monocytes # (auto) 0.48 K/uL (0.11-0.59); Monocytes % (auto) 8.2 %; Neutrophils # (auto) 3.62 K/uL (1.4-6.5); Neutrophils % (auto) 61.6 %; Platelet Count 190 K/uL (130-400); RDW Coefficient of Variation 12.4 % (11.5-14.5); RDW Standard Deviation 40.1 fL (36.4-46.3); Red Blood Count 3.53 M/uL (4.2-5.4); White Blood Count 5.87 K/uL (4.8-10.8)
[2019-01-02] MEDS: KETOROLAC TROMETHAMINE 10 MG TABLET PO PRN (06:40)
[2019-01-02 07:08] LABS: BUN Creatinine Ratio 6.3 (10-20); Creatinine Clr Calc Pharmacy 93.9 ml/min; Est GFR (African American) 110.5; Est GFR (Non-African American) 95.4; Potassium 3.5 mmol/L (3.5-5.1)
[2019-01-02] MEDS: BuPROPion SR 150 MG TABCR PO SCH (09:03)
[2019-01-02] MEDS: ENOXAPARIN INJ 40 MG/0.4 ML SYR SQ SCH (09:03)
[2019-01-02] MEDS: HYDROCODONE/ACETAMOPHEN 5/325MG TAB PO PRN ×2 (10:54→16:49)
--- NOTE | 2019-01-02 10:54 | Surgery Progress Note ---
Date of Service January 02, 2019 Assessment & Plan (1) Diverticulitis: awaiting bowel fx will advance to full liquids ok for d/c after bowel fx returns. Subjective states she is feeling better. +flatus. no bm yet. Physical Exam 2 Vital Signs (Past 24 Hours): Last Vital Signs Temp 37.1 C 01/02/19 08:16 Pulse 74 01/02/19 08:16 Resp 16 01/02/19 08:16 BP 107/78 01/02/19 08:16 Pulse Ox 96 01/02/19 08:16 Physical Exam: alert. mild discomfort abd: soft. +bs's. expected tenderness. KATHLEEN serous
[2019-01-02] MEDS: ZOLPIDEM TARTRATE 5 MG TAB PO PRN (22:08)
[2019-01-03] MEDS: KETOROLAC TROMETHAMINE 10 MG TABLET PO PRN (00:08)
[2019-01-03] MEDS: ACETAMINOPHEN 1,000 MG/100 ML VIAL IV SCH ×2 (04:00→09:06)
[2019-01-03 06:50] LABS: Hematocrit (blood only) 36.5 % (37-47); Hemoglobin 12.3 g/dL (12.0-16.0); Mean Corpuscular Hgb Conc 33.7 g/dL (32-36); Mean Corpuscular Volume 89.9 fL (80-100); Mean Platelet Volume 8.4 fL (7.4-10.4); Platelet Count 237 K/uL (130-400); RDW Coefficient of Variation 12.4 % (11.5-14.5); RDW Standard Deviation 39.7 fL (36.4-46.3); Red Blood Count 4.06 M/uL (4.2-5.4); White Blood Count 7.42 K/uL (4.8-10.8)
[2019-01-03] MEDS: BuPROPion SR 150 MG TABCR PO SCH (09:09)
[2019-01-03] MEDS: ENOXAPARIN INJ 40 MG/0.4 ML SYR SQ SCH (09:09)
--- NOTE | 2019-01-03 10:39 | Surgery Progress Note ---
Date of Service January 03, 2019 pt is doing fine, passed gas and BM, no abdominal pain, KATHLEEN 30ml Assessment & Plan (1) Diverticulitis: doing fine, continue treatment, possible go home tomorrow, Physical Exam 2 Vital Signs (Past 24 Hours): Last Vital Signs Temp 36.9 C 01/03/19 07:59 Pulse 74 01/03/19 07:59 Resp 14 01/03/19 07:59 BP 118/78 01/03/19 07:59 Pulse Ox 95 01/03/19 07:59 Constitutional: WD/WN, vitals as above Neck: trachea midline, no thyromegaly Respiratory: normal respiratory effort, lungs clear to auscultation Gastrointestinal (Abdomen): Percussion/Palpation: abdomen soft NT, ND incision heals well, Neurologic: awake Psychiatric: Orientation: alert and oriented x 3 Results & Data Laboratory Results Abnormal lab results 01/03/19 Range/Units 06:35 RBC 4.06 L (4.2-5.4) M/uL Hct 36.5 L (37-47) %
[2019-01-03] MEDS: HYDROCODONE/ACETAMOPHEN 5/325MG TAB PO PRN (13:34)
[2019-01-03] MEDS ORDERED: HYDROCODONE/ACETAMOPHEN 5/325MG TAB PO PRN ×2 (13:36)
[2019-01-03] MEDS: ONDANSETRON INJ 2 MG/ML 2 ML VIAL IV PRN ×2 (13:41→18:10)
[2019-01-03] MEDS ORDERED: ACETAMINOPHEN 325 MG TAB PO STA (19:22)
[2019-01-03] MEDS: HYDROmorphone INJ 0.5 MG/0.5 ML SYR IV PRN (21:53)
[2019-01-04] MEDS ORDERED: DiphenhydrAMINE HCL 50 MG/ML VIAL IV STA (00:19)
[2019-01-04] MEDS ORDERED: HYDROmorphone INJ 1 MG/ML SYRINGE IV STA (00:19)
[2019-01-04] MEDS ORDERED: methylPREDNISolone 50 MG in SYRINGE 0 ML IV SCH (00:30)
[2019-01-04] MEDS ORDERED: PROCHLORPERAZINE 5 MG in SYRINGE 4 ML IV SCH (00:45)
--- NOTE | 2019-01-04 03:22 | Consultation Report ---
DATE OF CONSULTATION: 01/04/2019 CHIEF COMPLAINT: Severe headaches. HISTORY OF PRESENT ILLNESS: This is a 54-year-old female with past medical history significant for malignant neoplasm of cervix, recurrent diverticulitis, kidney stones is status post elective laparoscopic sigmoid colectomy for recurrent diverticulitis, tolerated the procedure okay. The patient currently is on full liquid diet. Today, she started to develop migraine headaches. Generally with her migraines she first takes rizatriptan, if that does not work then she would Toradol and if Toradol does not work, then she takes Percocet at home. If all those medicines do not relieve, then she usually goes to the ER. In the ER, she usually gets antiemetics Benadryl and Dilaudid and that usually works. She is having severe headache all over the head and radiates to the back which is usual for her. Usually with her migraines she has nausea, but currently she does not have any nausea. Light is not bothering her. No weakness anywhere. No cough, no fever, no chills, no chest pain, no shortness of breath. Has abdominal pain from her surgical site. She says she is moving the bowels. Otherwise, she is doing okay. ALLERGIES: No known drug allergies. PAST MEDICAL HISTORY: As mentioned above. PAST SURGICAL HISTORY: Laparoscopic exploration of common duct, partial hysterectomy, cholecystectomy, cystoscopy, laser lithotripsy. MEDICATIONS: The patient is on bupropion 150 mg p.o. a.m., vitamin D 2000 units p.o. a.m., dicyclomine 10 mg p.o. t.i.d. p.r.n., estradiol 0.075 mg topical 2 times a week, [place] 1-2 tablets p.o. q. 4 hours p.r.n., ketorolac 10 mg p.r.n., magnesium 200 mg p.o. q.a.m., potassium citrate 10 mg p.o. a.m., rizatriptan 10 mg p.r.n., valacyclovir 1000 mg p.o. q. 2 hours p.r.n., zolpidem 5 mg p.o. at bedtime p.r.n. FAMILY HISTORY: Significant for brother who had heart attack at age of 37. Father has hypertension and stroke. Mother has hypertension. SOCIAL HISTORY: . No smoking history. Alcohol, social drinking. No drug use. REVIEW OF SYMPTOMS: As per HPI. Rest of review of systems negative. PHYSICAL EXAMINATION: GENERAL: The patient is of moderate build, not in acute distress. VITAL SIGNS: Temperature 36.9, pulse 64, respiratory rate 14, blood pressure 122/67, oxygen 95% room air. HEENT: No pallor, no icterus. NECK: No neck masses. CARDIOVASCULAR: S1, S2 heard, regular rate and rhythm, no murmur, no gallop. RESPIRATORY SYSTEM: Normal AP diameter. No accessory muscle use. No wheezing, no crackles. ABDOMEN: Soft, bowel sounds present. Laparoscopic sites clean, dressing and drain seen. She has abdominal discomfort. Mild guarding. CENTRAL NERVOUS SYSTEM: Nonfocal. EXTREMITIES: No edema, no erythema. LABORATORY DATA: WBC 7.4, hemoglobin 12.3, hematocrit 36.5, platelets 237. ASSESSMENT AND PLAN: This is a 54-year-old female status post elective sigmoid colectomy for recurrent diverticulitis, tolerated procedure okay. We are called for intractable migraine. 1. Severe migraine. She had some Dilaudid and Toradol, it is not helping her. Will direct care specialist the medications which works when she comes to the ER, IV Benadryl, IV Compazine, IV Dilaudid and also we gave a dose of Solu-Medrol and follow the response. 2. History of recurrent diverticulitis status post elective colectomy. Management as per surgery. 3. Deep venous thrombosis prophylaxis and disposition as per surgery. [facility]
[2019-01-04] MEDS: ENOXAPARIN INJ 40 MG/0.4 ML SYR SQ SCH (10:01)
[2019-01-04] MEDS: BuPROPion SR 150 MG TABCR PO SCH (10:01)
--- NOTE | 2019-01-04 11:52 | Surgery Progress Note ---
Date of Service January 04, 2019 doing fine, no abdominal pain, she tolerated diet, no nausea, no vomiting, passed BM, now, pt has no headache, KATHLEEN 40 ml/ day Assessment & Plan (1) Diverticulitis: doing fine, continue treatment, possible go home tomorrow, 01/04/2019 pull out KATHLEEN, pt wants to go home, the post-op care instruction was given, Physical Exam 2 Vital Signs (Past 24 Hours): Last Vital Signs Temp 36.6 C 01/04/19 07:15 Pulse 74 01/04/19 07:15 Resp 16 01/04/19 07:15 BP 118/73 01/04/19 07:15 Pulse Ox 95 01/04/19 07:15 Constitutional: WD/WN, vitals as above Neck: trachea midline, no thyromegaly Respiratory: normal respiratory effort, lungs clear to auscultation Gastrointestinal (Abdomen): Percussion/Palpation: abdomen soft all incisions intact, , NT, ND Neurologic: awake Psychiatric: Orientation: alert and oriented x 3
--- NOTE | 2019-01-05 12:26 | Discharge Summary ---
Date of Service January 13, 2019 Discharge Data Consultations 01/03/19 23:09 Consult Hospitalist Routine Procedures Performed Operation Date: 12/29/18 09:30 Actual Procedures p Laparoscopic Sigmoid Colon Resection, Extensive Enterolysis(Not Applicable) - Santy Carreno DO
--- NOTE | 2019-01-12 15:02 | Discharge Summary ---
PRIMARY DISCHARGE DIAGNOSIS: Recurrent diverticulitis. PROCEDURE PERFORMED: Laparoscopic sigmoid colon resection with extensive enterolysis. HOSPITAL COURSE: The patient is a 54-year-old female with recurrent diverticulitis, taken to the operating room for elective sigmoid colectomy. Procedure was well tolerated. She was transferred to the surgical floor. Perioperative antibiotics were continued for 24 hours. Lovenox was used for DVT prophylaxis. Worrell catheter was removed on postoperative day 2. She was started on clear liquids. She was passing some flatus by day 3, had some nausea, it was likely related to Dilaudid. We changed her to p.o. analgesics. She was able to tolerate full liquids on postoperative day 4. Her nausea had resolved. Day 5, she was moving her bowels, was advanced to regular diet. On postoperative day 6, KATHLEEN drain was removed. She was stable for discharge. Incisions were clean and dry. DISCHARGE INSTRUCTIONS: Discharge home. Follow up with Dr. Carreno in 7-10 days. DISCHARGE MEDICATIONS: [place] 1-2 tablets every 4 hours as needed. Resume her home medications, bupropion 150 mg daily, vitamin D3 supplement, dicyclomine 10 mg t.i.d., estradiol 0.075 mg 2 times per week, Ketorolac 10 mg as directed, magnesium 200 mg daily, potassium citrate 10 mEq daily, valacyclovir 1000 mg p.o. q. 12 hours, Ambien 5 mg at bedtime, Rizatriptan 10 mg as directed.
== END 2019-01-04 14:14 | disposition home or self-care (01) ==
LOC: ASU 07:59 → 3N 12:45